=== PATIENT | male | born 1970 | race African-American/Black ===

== ENCOUNTER 2019-05-10 23:26 | Emergency (ER) | payer OTHER, SELFPAY ==
[~2019-05-10 23:26] MED LIST: ISOVUE-370 76%-LOCM 1 ML ONE
--- NOTE | 2019-05-10 23:54 | CT ---
CT Brain WO Con History: Trauma Comparison: None. Findings: No acute hemorrhage or infarct. No midline shift or mass effect. Ventricular size and extra -axial CSF spaces are normal. Calvarium is intact. Paranasal sinuses and mastoids are clear. Impression: No acute intracranial abnormality.
[2019-05-10 23:55] LABS: #Basophils 0.1 thou/uL (0.0-0.2); #Eosinphils 0.2 thou/uL (0.0-0.7); #Lymphocytes 2.4 thou/uL (1.20-3.40); #Monocytes 0.7 thou/uL (0.11-0.59); #Neutrophils 3.6 thou/uL (1.40-6.50); %Basophils 1.3 % (0.0-1.0); %Eosinophils 2.8 % (0.0-10.0); %Lymphocytes 34.8 % (21.0-51.0); %Monocytes 9.3 % (0.0-10.0); %Neutrophils 51.8 % (42.0-75.0); Hemoglobin 13.3 g/dL (14.0-18.0); Mean Corpuscular HGB CONC 32.7 g/dL (32.0-36.0); Mean Corpuscular Hemoglobin 30.1 pg (27.0-31.0); Mean Platelet Volume 8.7 fL (7.4-10.4); Platelet Count 282 thou/uL (130-400); RBC Distribution Width 12.9 % (11.5-14.5); Red Blood Cell (RBC) Count 4.43 mill/uL (4.70-6.10)
--- NOTE | 2019-05-11 00:01 | CT ---
CT Cervical Spine WO Con History: Trauma Comparison: None. Findings: The odontoid process is intact. The occipital condyles are intact. No acute traumatic facet joint widening. No acute fracture or malalignment of the cervical spine. Vis ualized posterior ribs are intact. Mild paraseptal emphysema in the lung apices. No prevertebral hematoma. Impression: No acute fracture or malalignment of the cervical spine.
--- NOTE | 2019-05-11 00:07 | CT ---
CT Chest Abd Pelvis W Con History: Trauma Comparison: None. Findings: Mild paraseptal emphysema in the lung apices. No pulmonary contusion. 5 mm nodule nodule al serina the minor fissure. No acute aortic injury. No prevertebral hematoma. Thoracic spine and lumbar spine are without fracture. The clavicles are intact. Scapula are intact. No acute displaced rib fracture. The spinous processes are intact. Transverse processes are intact. The SI joints are normal. Pubic symphysis is normal. No sacral fracture. Multiple splenic granulomas. No splenic injury. No hepatic injury. No renal injury. No retroperitonea l injury. No mesenteric hematoma. No free intraperitoneal gas or fluid. Impression: No traumatic abnormality within the chest, abdomen, or pelvis. Code CR: ordering provider at 12:03 AM.
[2019-05-11 00:13] LABS: ALT (SGPT) 17 U/L (8-55); AST (SGOT) 12 U/L (5-34); Albumin 3.7 g/dL (3.5-5.0); Alkaline Phosphatase 81 U/L (40-150); Anion Gap 10 mmol/L (10-20); BUN (Urea Nitrogen) 12 mg/dL (8.9-20.6); Bilirubin, Total 0.2 mg/dL (0.2-1.2); Calc. Creatinine Clearance 0 mL/min (70-130); Calcium 8.9 mg/dL (7.8-10.44); Carbon Dioxide 24 mmol/L (22-29); Chloride 110 mmol/L (98-107); Estimated GFR-MDRD Greater than 90; Globulin 2.1 g/dL (2.4-3.5); Glucose 96 mg/dL (70-105); Lipase 45 U/L (8-78); Potassium 3.7 mmol/L (3.5-5.1); Protein, Total 5.8 g/dL (6.0-8.3); Sodium 140 mmol/L (136-145)
[2019-05-11] MEDS ORDERED: HYDROcodone/Acetaminophen 5/325 mg Tablet ONE (00:49)
== END 2019-05-11 00:59 | disposition home or self-care (01) ==
LOC: ERS 23:26
DX: S06.9X9A Unspecified intracranial injury with loss of consciousness of unspecified duration, initial encounter (principal); S30.1XXA Contusion of abdominal wall, initial encounter; S20.212A Contusion of left front wall of thorax, initial encounter; V29.9XXA Motorcycle rider (driver) (passenger) injured in unspecified traffic accident, initial encounter
CPT/HCPCS: 70450; 71260; 72125; 74177; 80053; 83690; 85025; G0390; Q9966